=== PATIENT | male | born 1965 | race Caucasian/White ===

== ENCOUNTER 2022-09-30 18:45 | Inpatient (IN) | payer OTHER ==
[~2022-09-30] VITALS: Ht 180.3 cm; Wt 212.7 kg
[2022-09-30] MEDS ORDERED: Morphine 4mg INJECTION 4 MG/ML INJ IV PRN (19:15)
[2022-09-30] MEDS ORDERED: ONDANSETRON HCL INJ 2MG/ML 2ML 2 MG/ML VIAL IV PRN (19:15)
[2022-09-30] MEDS ORDERED: SODIUM CHLORIDE FLUSH 10 ML SYR INJ PRN (19:15)
[2022-09-30] MEDS ORDERED: HYDRALAZINE HCL 20 MG/ML VIAL IV STA (19:22)
[2022-09-30] MEDS ORDERED: FUROSEMIDE INJ 10 MG/ML 4 ML VIAL IV STA (19:22)
[2022-09-30] MEDS ORDERED: ALBUTEROL/IPRATROPIUM 3 ML NEB NEB STA (19:25)
[2022-09-30] MEDS ORDERED: HYDRALAZINE HCL 20 MG/ML VIAL ONE (19:27)
[2022-09-30] MEDS ORDERED: FUROSEMIDE INJ 10 MG/ML 4 ML VIAL ONE ×2 (19:27→19:35)
[2022-09-30] MEDS ORDERED: ENOXAPARIN SODIUM INJ 100 MG/ML SYR SC ONE (19:27)
[2022-09-30] MEDS ORDERED: ALBUTEROL/IPRATROPIUM 3 ML NEB ONE (19:28)
[2022-09-30] MEDS: ENOXAPARIN SODIUM INJ 100 MG/ML SYR SC SCH (19:44)
[2022-09-30] MEDS ORDERED: CETIRIZINE HCL10 MG PO (19:52)
[2022-09-30] MEDS ORDERED: LEVOTHYROXINE50 MCG PO (19:52)
[2022-09-30] MEDS ORDERED: LOSARTAN POTAS100 MG PO (19:52)
[2022-09-30] MEDS ORDERED: HYDROCHLOROTH12.5 MG PO (19:52)
[2022-09-30 19:53] LABS: BASOPHILS # (AUTO) 0.1 (0.0-0.1); BASOPHILS % 0.4 % (0.0-1.0); EOSINOPHILS # (AUTO) 0.1 (0.0-0.4); EOSINOPHILS % 0.5 % (0.0-6.0); HEMATOCRIT 44.3 % (38.2-49.6); HEMOGLOBIN 14.6 g/dL (14.0-18.0); LYMPHOCYTES # (AUTO) 1.3 (1.0-3.2); LYMPHOCYTES % 7.5 % (18.0-39.1); MEAN CORPUSCULAR HEMOGLOBIN 28.7 pg (28-32); MONOCYTES # (AUTO) 0.6 (0.2-0.8); MONOCYTES % 3.7 % (4.4-11.3); NEUTROPHILS # (AUTO) 14.9 (2.1-6.9); NEUTROPHILS % 87.4 % (38.7-80.0); PLATELET COUNT 255 x10e3/uL (140-360); RED BLOOD COUNT 5.09 x10e6/uL (4.3-5.7); RED CELL DISTRIBUTION WIDTH 14.9 % (11.7-14.4)
[2022-09-30 20:11] LABS: ALBUMIN 3.7 g/dL (3.5-5.0); ALBUMIN/GLOBULIN RATIO 0.7 (0.8-2.0); ANION GAP 14.9 mmol/L (8-16); CREATININE, SERUM 1.1 mg/dL (0.72-1.25); POTASSIUM 3.9 mmol/L (3.5-5.1)
[2022-09-30] MEDS ORDERED: LEVOFLOXACIN 750MG/D5W 150ML 150 ML IV ONE (20:32)
[2022-09-30] MEDS: LEVOFLOXACIN 750MG/D5W 150ML 150 ML IV SCH (20:33)
[2022-09-30 21:30] VITALS: BP 167/92; PULSE 97; RESP 24; TEMP 98; O2SAT 95
[2022-09-30 21:48] VITALS: BP 138/85; PULSE 95; RESP 20; TEMP 98; O2SAT 92
[2022-09-30 22:07] VITALS: BP 138/85; PULSE 95; RESP 20; TEMP 98; O2SAT 92
[2022-09-30] MEDS ORDERED: AMLODIPINE BESYLATE 5 MG TAB PO ONE (23:45)
[2022-10-01] VITALS (10 sets, daily range): BP systolic 106–144; BP diastolic 56–82; PULSE 73–113; RESP 18–20; TEMP 97.6–98.6; O2SAT 93–100
[2022-10-01] MEDS: METOPROLOL TARTRATE 25 MG TAB PO SCH ×4 (01:49→17:23)
[2022-10-01 04:30] LABS: MAGNESIUM 1.6 MG/DL (1.3-2.1); PHOSPHORUS 4.4 MG/DL (2.3-4.7)
[2022-10-01 05:09] LABS: THYROID STIMULATING HORMONE 28.185 uIU/mL (0.350-4.940)
[2022-10-01 06:15] LABS: BASOPHILS # (AUTO) 0.1 (0.0-0.1); BASOPHILS % 0.5 % (0.0-1.0); EOSINOPHILS # (AUTO) 0.1 (0.0-0.4); EOSINOPHILS % 0.7 % (0.0-6.0); HEMATOCRIT 41.1 % (38.2-49.6); HEMOGLOBIN 13.1 g/dL (14.0-18.0); LYMPHOCYTES # (AUTO) 2.6 (1.0-3.2); LYMPHOCYTES % 17.3 % (18.0-39.1); MEAN CORPUSCULAR HEMOGLOBIN 28.4 pg (28-32); MEAN CORPUSCULAR HGB CONC 31.9 g/dL (31-35); MEAN CORPUSCULAR VOLUME 89.2 fL (81-99); MONOCYTES # (AUTO) 0.8 (0.2-0.8); MONOCYTES % 5.5 % (4.4-11.3); NEUTROPHILS # (AUTO) 11.5 (2.1-6.9); NEUTROPHILS % 75.5 % (38.7-80.0); PLATELET COUNT 238 x10e3/uL (140-360); RED BLOOD COUNT 4.61 x10e6/uL (4.3-5.7)
[2022-10-01 06:30] LABS: ALBUMIN 3.2 g/dL (3.5-5.0); ALBUMIN/GLOBULIN RATIO 0.7 (0.8-2.0); ANION GAP 19.2 mmol/L (8-16); CALCIUM 7.5 mg/dL (8.4-10.2); CREATININE, SERUM 1.07 mg/dL (0.72-1.25); POTASSIUM 4.2 mmol/L (3.5-5.1)
[2022-10-01] MEDS ORDERED: ACETAMINOPHEN 325 MG TAB PO PRN (08:45)
[2022-10-01] MEDS: ALBUTEROL/IPRATROPIUM 3 ML NEB NEB SCH ×3 (09:00→19:00)
[2022-10-01] MEDS: AMLODIPINE BESYLATE 5 MG TAB PO SCH (09:12)
[2022-10-01] MEDS: ENOXAPARIN SODIUM INJ 100 MG/ML SYR SC SCH ×2 (09:12→21:20)
[2022-10-01] MEDS ORDERED: METHYLPREDNISOLONE SOD SUCC 125 MG/2ML VIAL IV SCH (09:45)
[2022-10-01] MEDS: LEVOTHYROXINE SODIUM 50 MCG TAB PO SCH (10:15)
[2022-10-01] MEDS: LEVOFLOXACIN 750MG/D5W 150ML 150 ML IV SCH (21:20)
[2022-10-02] VITALS (11 sets, daily range): BP systolic 105–148; BP diastolic 61–80; PULSE 60–78; RESP 18–22; TEMP 97.8–98.3; O2SAT 93–100
[2022-10-02] MEDS: METOPROLOL TARTRATE 25 MG TAB PO SCH ×4 (01:25→16:48)
[2022-10-02 04:57] LABS: BASOPHILS % 0.3 % (0.0-1.0); EOSINOPHILS # (AUTO) 0.1 (0.0-0.4); EOSINOPHILS % 0.4 % (0.0-6.0); HEMATOCRIT 38.8 % (38.2-49.6); HEMOGLOBIN 12.2 g/dL (14.0-18.0); LYMPHOCYTES # (AUTO) 2.5 (1.0-3.2); LYMPHOCYTES % 19.7 % (18.0-39.1); MEAN CORPUSCULAR HGB CONC 31.4 g/dL (31-35); MONOCYTES # (AUTO) 0.7 (0.2-0.8); MONOCYTES % 5.8 % (4.4-11.3); NEUTROPHILS # (AUTO) 9.1 (2.1-6.9); NEUTROPHILS % 73.2 % (38.7-80.0); PLATELET COUNT 218 x10e3/uL (140-360); RED BLOOD COUNT 4.36 x10e6/uL (4.3-5.7); RED CELL DISTRIBUTION WIDTH 14.7 % (11.7-14.4)
[2022-10-02 05:15] LABS: ANION GAP 15.8 mmol/L (8-16); CALCIUM 7.5 mg/dL (8.4-10.2); CREATININE, SERUM 1.1 mg/dL (0.72-1.25); POTASSIUM 3.8 mmol/L (3.5-5.1)
[2022-10-02] MEDS: ALBUTEROL/IPRATROPIUM 3 ML NEB NEB SCH ×4 (06:00→19:05)
[2022-10-02] MEDS: LEVOTHYROXINE SODIUM 50 MCG TAB PO SCH (06:18)
[2022-10-02] MEDS: ENOXAPARIN SODIUM INJ 100 MG/ML SYR SC SCH ×2 (09:19→20:59)
[2022-10-02] MEDS: AMLODIPINE BESYLATE 5 MG TAB PO SCH (09:22)
[2022-10-02] MEDS ORDERED: ONDANSETRON HCL 4 MG ORAL DISINTEGRATING TAB PO PRN (13:00)
[2022-10-02] MEDS: LEVOFLOXACIN 750MG/D5W 150ML 150 ML IV SCH (20:59)
[2022-10-03] VITALS (13 sets, daily range): BP systolic 107–154; BP diastolic 56–94; PULSE 66–91; RESP 18–20; TEMP 98–99; O2SAT 94–100
[2022-10-03] MEDS: METOPROLOL TARTRATE 25 MG TAB PO SCH ×5 (00:43→23:39)
[2022-10-03] MEDS: ALBUTEROL/IPRATROPIUM 3 ML NEB NEB SCH ×5 (01:15→23:00)
[2022-10-03] MEDS: LEVOTHYROXINE SODIUM 50 MCG TAB PO SCH (05:47)
[2022-10-03] MEDS: PANTOPRAZOLE SOD 40 MG TABEC PO SCH (08:48)
[2022-10-03] MEDS: FUROSEMIDE INJ 10 MG/ML 4 ML VIAL IV SCH ×2 (09:25→12:08)
[2022-10-03] MEDS: ENOXAPARIN SODIUM INJ 100 MG/ML SYR SC SCH ×2 (09:25→20:51)
[2022-10-03] MEDS: AMLODIPINE BESYLATE 5 MG TAB PO SCH (09:26)
[2022-10-03] MEDS: LEVOFLOXACIN 750MG/D5W 150ML 150 ML IV SCH (20:50)
[2022-10-03] MEDS ORDERED: ENOXAPARIN SODIUM INJ 100 MG/ML SYR SC SCH (21:00)
[2022-10-04] VITALS (10 sets, daily range): BP systolic 113–121; BP diastolic 65–77; PULSE 72–92; RESP 16–22; TEMP 97.8–98.8; O2SAT 94–100
[2022-10-04 05:03] LABS: BASOPHILS # (AUTO) 0.1 (0.0-0.1); BASOPHILS % 0.6 % (0.0-1.0); EOSINOPHILS # (AUTO) 0.2 (0.0-0.4); EOSINOPHILS % 2.1 % (0.0-6.0); HEMATOCRIT 41.6 % (38.2-49.6); HEMOGLOBIN 12.8 g/dL (14.0-18.0); LYMPHOCYTES # (AUTO) 2.1 (1.0-3.2); LYMPHOCYTES % 19.7 % (18.0-39.1); MEAN CORPUSCULAR HEMOGLOBIN 27.8 pg (28-32); MEAN CORPUSCULAR HGB CONC 30.8 g/dL (31-35); MEAN CORPUSCULAR VOLUME 90.4 fL (81-99); MONOCYTES # (AUTO) 0.7 (0.2-0.8); MONOCYTES % 6.3 % (4.4-11.3); NEUTROPHILS # (AUTO) 7.5 (2.1-6.9); NEUTROPHILS % 70.7 % (38.7-80.0); PLATELET COUNT 213 x10e3/uL (140-360)
[2022-10-04 05:19] LABS: ANION GAP 15.4 mmol/L (8-16); CALCIUM 7.1 mg/dL (8.4-10.2); CREATININE, SERUM 1.16 mg/dL (0.72-1.25); POTASSIUM 3.4 mmol/L (3.5-5.1)
[2022-10-04] MEDS: LEVOTHYROXINE SODIUM 50 MCG TAB PO SCH (06:05)
[2022-10-04] MEDS: METOPROLOL TARTRATE 25 MG TAB PO SCH ×3 (06:05→18:06)
[2022-10-04] MEDS: ALBUTEROL/IPRATROPIUM 3 ML NEB NEB SCH (06:20)
[2022-10-04] MEDS: PANTOPRAZOLE SOD 40 MG TABEC PO SCH (08:32)
[2022-10-04] MEDS: FUROSEMIDE INJ 10 MG/ML 4 ML VIAL IV SCH ×2 (08:32→12:16)
[2022-10-04] MEDS: ENOXAPARIN SODIUM INJ 100 MG/ML SYR SC SCH ×2 (09:09→20:45)
[2022-10-04] MEDS: AMLODIPINE BESYLATE 5 MG TAB PO SCH (09:10)
[2022-10-04] MEDS: ALBUTEROL SULF 0.083% NEB SOLN 3 ML NEB NEB SCH ×2 (13:30→19:12)
[2022-10-04] MEDS: IPRATROPIUM BROMIDE 0.02% 2.5 ML NEB NEB SCH ×2 (13:30→19:12)
[2022-10-04] MEDS: LEVOFLOXACIN 250 MG TAB PO SCH (20:45)
[2022-10-05] VITALS (13 sets, daily range): BP systolic 102–127; BP diastolic 62–78; PULSE 76–119; RESP 17–20; TEMP 97.8–99.2; O2SAT 92–100
[2022-10-05] MEDS: IPRATROPIUM BROMIDE 0.02% 2.5 ML NEB NEB SCH ×4 (00:30→18:45)
[2022-10-05] MEDS: ALBUTEROL SULF 0.083% NEB SOLN 3 ML NEB NEB SCH ×4 (00:30→18:45)
[2022-10-05] MEDS: LEVOTHYROXINE SODIUM 50 MCG TAB PO SCH (06:22)
[2022-10-05] MEDS: METOPROLOL TARTRATE 25 MG TAB PO SCH ×4 (06:22→17:11)
[2022-10-05] MEDS: PANTOPRAZOLE SOD 40 MG TABEC PO SCH (07:50)
[2022-10-05] MEDS: FUROSEMIDE INJ 10 MG/ML 4 ML VIAL IV SCH ×2 (08:43→12:38)
[2022-10-05] MEDS: ENOXAPARIN SODIUM INJ 100 MG/ML SYR SC SCH (08:43)
[2022-10-05] MEDS: AMLODIPINE BESYLATE 5 MG TAB PO SCH (08:44)
[2022-10-05] MEDS ORDERED: POTASSIUM CHLORIDE 10MEQ EA PO ONE (11:00)
[2022-10-05] MEDS: FLUTICASONE PROPIONATE NASAL SPRAY NS SCH ×2 (12:38→16:45)
[2022-10-05] MEDS: APIXABAN 5 MG TABLET PO SCH (16:44)
[2022-10-05] MEDS: LEVOFLOXACIN 250 MG TAB PO SCH (20:31)
[2022-10-06] VITALS (13 sets, daily range): BP systolic 97–131; BP diastolic 54–79; PULSE 20–97; RESP 17–22; TEMP 97.6–99.3; O2SAT 96–100
[2022-10-06] MEDS: METOPROLOL TARTRATE 25 MG TAB PO SCH ×4 (00:52→17:26)
[2022-10-06] MEDS: ALBUTEROL SULF 0.083% NEB SOLN 3 ML NEB NEB SCH ×4 (02:34→19:04)
[2022-10-06] MEDS: IPRATROPIUM BROMIDE 0.02% 2.5 ML NEB NEB SCH ×4 (02:34→19:03)
[2022-10-06] MEDS: LEVOTHYROXINE SODIUM 50 MCG TAB PO SCH (06:01)
[2022-10-06 08:30] LABS: BASOPHILS # (AUTO) 0.1 (0.0-0.1); BASOPHILS % 0.5 % (0.0-1.0); EOSINOPHILS # (AUTO) 0.2 (0.0-0.4); EOSINOPHILS % 1.9 % (0.0-6.0); HEMATOCRIT 39.8 % (38.2-49.6); HEMOGLOBIN 12.6 g/dL (14.0-18.0); LYMPHOCYTES # (AUTO) 1.8 (1.0-3.2); LYMPHOCYTES % 15.5 % (18.0-39.1); MEAN CORPUSCULAR HEMOGLOBIN 28.2 pg (28-32); MEAN CORPUSCULAR HGB CONC 31.7 g/dL (31-35); MONOCYTES # (AUTO) 0.7 (0.2-0.8); MONOCYTES % 6.3 % (4.4-11.3); NEUTROPHILS # (AUTO) 8.8 (2.1-6.9); NEUTROPHILS % 75.3 % (38.7-80.0); PLATELET COUNT 213 x10e3/uL (140-360); RED BLOOD COUNT 4.47 x10e6/uL (4.3-5.7); RED CELL DISTRIBUTION WIDTH 15.3 % (11.7-14.4)
[2022-10-06] MEDS: APIXABAN 5 MG TABLET PO SCH ×2 (08:34→17:25)
[2022-10-06] MEDS: FUROSEMIDE INJ 10 MG/ML 4 ML VIAL IV SCH ×2 (08:34→11:40)
[2022-10-06] MEDS: FLUTICASONE PROPIONATE NASAL SPRAY NS SCH ×2 (08:35→17:00)
[2022-10-06] MEDS: PANTOPRAZOLE SOD 40 MG TABEC PO SCH (08:35)
[2022-10-06] MEDS: POTASSIUM CHLORIDE 10MEQ EA PO SCH (08:35)
[2022-10-06] MEDS: AMLODIPINE BESYLATE 5 MG TAB PO SCH (08:35)
[2022-10-06 08:54] LABS: ANION GAP 16.3 mmol/L (8-16); CREATININE, SERUM 1.33 mg/dL (0.72-1.25); POTASSIUM 3.3 mmol/L (3.5-5.1)
[2022-10-06 09:04] LABS: CALCIUM 6.6 mg/dL (8.4-10.2)
[2022-10-06] MEDS: LEVOFLOXACIN 250 MG TAB PO SCH (21:28)
[2022-10-07] VITALS (11 sets, daily range): BP systolic 108–138; BP diastolic 52–88; PULSE 69–91; RESP 18–21; TEMP 97.8–98.7; O2SAT 97–99
[2022-10-07] MEDS: METOPROLOL TARTRATE 25 MG TAB PO SCH ×4 (00:21→15:38)
[2022-10-07] MEDS: IPRATROPIUM BROMIDE 0.02% 2.5 ML NEB NEB SCH ×4 (01:35→19:38)
[2022-10-07] MEDS: ALBUTEROL SULF 0.083% NEB SOLN 3 ML NEB NEB SCH ×4 (01:37→19:39)
[2022-10-07] MEDS: LEVOTHYROXINE SODIUM 50 MCG TAB PO SCH (06:07)
[2022-10-07 06:14] LABS: BASOPHILS # (AUTO) 0.1 (0.0-0.1); BASOPHILS % 0.5 % (0.0-1.0); EOSINOPHILS # (AUTO) 0.3 (0.0-0.4); EOSINOPHILS % 1.9 % (0.0-6.0); HEMATOCRIT 43.4 % (38.2-49.6); HEMOGLOBIN 13.6 g/dL (14.0-18.0); LYMPHOCYTES # (AUTO) 2.5 (1.0-3.2); LYMPHOCYTES % 19.5 % (18.0-39.1); MEAN CORPUSCULAR HEMOGLOBIN 28.1 pg (28-32); MEAN CORPUSCULAR HGB CONC 31.3 g/dL (31-35); MEAN CORPUSCULAR VOLUME 89.7 fL (81-99); MONOCYTES # (AUTO) 0.9 (0.2-0.8); MONOCYTES % 7.3 % (4.4-11.3); NEUTROPHILS % 70.1 % (38.7-80.0); PLATELET COUNT 215 x10e3/uL (140-360); RED BLOOD COUNT 4.84 x10e6/uL (4.3-5.7)
[2022-10-07 06:24] LABS: ANION GAP 20.5 mmol/L (8-16); CREATININE, SERUM 1.24 mg/dL (0.72-1.25); POTASSIUM 3.5 mmol/L (3.5-5.1)
[2022-10-07 06:28] LABS: CALCIUM 6.7 mg/dL (8.4-10.2)
[2022-10-07] MEDS: FUROSEMIDE INJ 10 MG/ML 4 ML VIAL IV SCH ×2 (07:48→11:12)
[2022-10-07] MEDS: AMLODIPINE BESYLATE 5 MG TAB PO SCH (09:37)
[2022-10-07] MEDS: PANTOPRAZOLE SOD 40 MG TABEC PO SCH (09:37)
[2022-10-07] MEDS: POTASSIUM CHLORIDE 10MEQ EA PO SCH (09:37)
[2022-10-07] MEDS: APIXABAN 5 MG TABLET PO SCH ×2 (09:37→15:35)
[2022-10-07] MEDS: FLUTICASONE PROPIONATE NASAL SPRAY NS SCH ×2 (09:46→15:35)
[2022-10-07] MEDS ORDERED: POTASSIUM CHLORIDE 10MEQ EA PO ONE (10:00)
[2022-10-07] MEDS ORDERED: CALCIUM GLUC 1 G/50 ML NACL 50 ML IV ONE (11:00)
[2022-10-08 00:42] VITALS: BP 132/63; PULSE 81; RESP 19; TEMP 98.6; O2SAT 100
[2022-10-08 01:50] VITALS: PULSE 84; RESP 20; O2SAT 98
[2022-10-08] MEDS: IPRATROPIUM BROMIDE 0.02% 2.5 ML NEB NEB SCH ×2 (01:50→07:45)
[2022-10-08] MEDS: ALBUTEROL SULF 0.083% NEB SOLN 3 ML NEB NEB SCH ×2 (01:51→07:45)
[2022-10-08 04:11] VITALS: BP 136/73; PULSE 80; RESP 20; TEMP 98.1; O2SAT 99
[2022-10-08] MEDS: LEVOTHYROXINE SODIUM 50 MCG TAB PO SCH (05:03)
[2022-10-08 06:32] LABS: ANION GAP 16.6 mmol/L (8-16); CREATININE, SERUM 1.17 mg/dL (0.72-1.25); POTASSIUM 3.6 mmol/L (3.5-5.1)
[2022-10-08 06:34] LABS: CALCIUM 6.7 mg/dL (8.4-10.2)
[2022-10-08 07:45] VITALS: PULSE 83; RESP 20; O2SAT 97
[2022-10-08 08:00] VITALS: BP 129/67; PULSE 79; PULSE 85; RESP 18; TEMP 98; O2SAT 97; O2SAT 98
[2022-10-08] MEDS: APIXABAN 5 MG TABLET PO SCH (09:09)
[2022-10-08] MEDS: METOPROLOL TARTRATE 25 MG TAB PO SCH (09:10)
[2022-10-08] MEDS: POTASSIUM CHLORIDE 10MEQ EA PO SCH (09:11)
[2022-10-08] MEDS: AMLODIPINE BESYLATE 5 MG TAB PO SCH (09:11)
[2022-10-08] MEDS: FLUTICASONE PROPIONATE NASAL SPRAY NS SCH (09:12)
[2022-10-08] MEDS: PANTOPRAZOLE SOD 40 MG TABEC PO SCH (09:13)
[2022-10-08] MEDS ORDERED: SODIUM CHLORIDE 0.9% 250ML 250 ML ONE (09:18)
[2022-10-08] MEDS ORDERED: CALCITRIOL 0.25 MCG CAP PO SCH (09:30)
[2022-10-08] MEDS ORDERED: CALCIUM GLUCONATE 10% INJ 13.95 MEQ in SODIUM CHLORIDE 0.9% 100 ML IV ONE (09:30)
[2022-10-08] MEDS ORDERED: CALCIUM CARBONATE 500 MG CHEWABLE TABS PO SCH (09:30)
[2022-10-08 12:00] VITALS: BP 126/65; PULSE 78; RESP 18; TEMP 98.6; O2SAT 96
[2022-10-08] MEDS: FUROSEMIDE INJ 10 MG/ML 4 ML VIAL IV SCH ×2 (12:00→12:05)
== END 2022-10-08 13:09 | disposition home or self-care (01) | DRG 291 ==
LOC: FSED 18:59 → ERHOLD 19:13 → MED/SURG3 21:36
PROVIDERS: ADMIT Internal Medicine; ATTEND Internal Medicine
DX: I11.0 Hypertensive heart disease with heart failure (principal); I50.33 Acute on chronic diastolic (congestive) heart failure; J18.9 Pneumonia, unspecified organism; Z68.44 Body mass index [BMI] 60.0-69.9, adult; J45.901 Unspecified asthma with (acute) exacerbation; J30.9 Allergic rhinitis, unspecified; E03.9 Hypothyroidism, unspecified; E87.6 Hypokalemia; I16.0 Hypertensive urgency; G47.33 Obstructive sleep apnea (adult) (pediatric); D72.829 Elevated white blood cell count, unspecified; I27.20 Pulmonary hypertension, unspecified; E66.01 Morbid (severe) obesity due to excess calories; E83.51 Hypocalcemia; Z88.0 Allergy status to penicillin; Z79.899 Other long term (current) drug therapy; Z99.81 Dependence on supplemental oxygen; Z79.01 Long term (current) use of anticoagulants
CPT/HCPCS: 36415; 71046; 80048; 80053; 82550; 83036; 83690; 83735; 83880; 84100; 84443; 84484; 85025; 87400; 93005; 93306; 93970; 94640; 94799; 99284; J0612; J1650; J1940; J2930; J7050